=== PATIENT | female | born 1985 | race Two or more races ===

== ENCOUNTER 2016-07-20 11:24 | Outpatient (CLI) | payer BC | END 2016-07-20 23:59 | disposition home or self-care (01) | LOC: RAD 11:24 | PROVIDERS: ATTEND Nurse Practitioner Acute Care | DX: R06.00 Dyspnea, unspecified (principal) | CPT/HCPCS: 71020-TC ==

== ENCOUNTER 2019-08-15 14:36 | Outpatient (CLI) | payer BC ==
[2019-08-15 15:08] LABS: BASOPHILS # (AUTO) 0.1 /CMM (0.0-0.2); BASOPHILS % (AUTO) 1.1 % (0.0-2.0); EOSINOPHILS % (AUTO) 1.5 % (0.0-6.0); HEMATOCRIT 42 % (33-45); HEMOGLOBIN 13.9 g/dL (11.5-14.8); LYMPHOCYTES # (AUTO) 1.6 /CMM (0.8-4.8); LYMPHOCYTES % (AUTO) 19.2 % (20.0-44.0); MEAN CORPUSCULAR HGB CONC 33 g/dl (31.0-36.0); MEAN CORPUSCULAR VOLUME 106 fL (82-100); MONOCYTES # (AUTO) 0.6 /CMM (0.1-1.30); MONOCYTES % (AUTO) 6.9 % (2.0-12.0); NEUTROPHILS # (AUTO) 5.8 /CMM (1.8-8.9); NEUTROPHILS % (AUTO) 71.3 % (43.0-81.0); PLATELET COUNT (AUTO) 254 /CMM (150-450); RED BLOOD CELL COUNT(AUTO) 3.93 MIL/uL (4.0-5.2); WHITE BLOOD COUNT (AUTO) 8.1 K/uL (4.3-11.0)
[2019-08-15 15:09] LABS: CALCIUM, SERUM 9.1 mg/dL (8.5-10.1); CREATININE 0.8 mg/dL (0.6-1.3); POTASSIUM 4.2 mmol/L (3.5-5.1)
[2019-08-15 15:35] LABS: EOSINOPHILS % (MANUAL) 3 % (0-4); LYMPHOCYTES % (MANUAL) 19 % (16-48); MONOCYTES % (MANUAL) 7 % (0-11.0); NEUTROPHILS % (MANUAL) 71 (42-76)
[2019-08-15 15:39] LABS: THYROID STIMULATING HORMONE 1.563 uIU/mL (0.358-3.74)
== END 2019-08-15 23:59 | disposition home or self-care (01) ==
LOC: LAB 14:36
PROVIDERS: ATTEND Nurse Practitioner Acute Care
DX: E03.9 Hypothyroidism, unspecified (principal)
CPT/HCPCS: 36415; 80048-TC; 82306; 84443-TC; 85025-TC